=== PATIENT | female | born 1980 | race Caucasian/White ===

== ENCOUNTER 2020-07-30 07:37 | Emergency (ER) | payer MEDICAID ==
[~2020-07-30] VITALS: Ht 165.1 cm; Wt 80.0 kg
[2020-07-30] MEDS ORDERED: LORAZEPAM 1MG TABLET PO ONE (08:30)
[2020-07-30 10:14] VITALS: BP 156/80
== END 2020-07-30 10:16 | disposition home or self-care (01) ==
LOC: ER 07:37
DX: F41.9 Anxiety disorder, unspecified (principal); R07.89 Other chest pain
CPT/HCPCS: 71045; 93005; 99283